=== PATIENT | male | born 1955 | race Caucasian/White ===

== ENCOUNTER 2022-03-22 18:57 | Emergency (ER) | payer BC ==
[2022-03-22] MEDS ORDERED: SODIUM CHLORIDE 0.9% 1,000 ML IV STA (21:17)
--- NOTE | 2022-03-22 21:35 | ED ---
Male Urogenital HPI - General Chief complaint: Urogenital Stated complaint: Poss UTI Time Seen by Provider: 03/22/22 21:08 Source: patient Mode of arrival: ambulatory Limitations: no limitations - History of Present Illness Initial comments: Patient is a 66-year-old male presenting from urgent care for concerns of sepsis. Patient states that for the last few days he has been having some urgency and frequency. He states he noted some traces of blood in his urine for a few days ago, but this has since stopped. He admits to left testicular pain and swelling. He denies any abdominal pain, nausea, vomiting, flank pain. He was seen in urgent care today, he was found to be tachycardic and febrile at 101. They were concerned for sepsis and sent him here for evaluation. He denies any chest pain or shortness of breath. Denies any dysuria. Denies any recent illness, URI like symptoms, cough. - Related Data Home Medications Medication Instructions Recorded Confirmed Rosuvastatin [Crestor] 10 mg PO DAILY 03/22/22 03/22/22 Tamsulosin [Flomax] 0.4 mg PO DAILY 03/22/22 03/22/22 Previous Rx's Medication Instructions Recorded Ciprofloxacin HCl [Cipro] 500 mg PO BID 7 Days #14 tab 03/22/22 Allergies Allergy/AdvReac Type Severity Reaction Status Date / Time No Known Allergies Allergy Verified 03/22/22 21:47 Review of Systems ROS Statement: Those systems with pertinent positive or pertinent negative responses have been documented in the HPI. ROS Other: All systems not noted in ROS Statement are negative. Past Medical History Past Medical History: Hyperlipidemia History of Any Multi-Drug Resistant Organisms: None Reported Past Surgical History: No Surgical Hx Reported Past Psychological History: No Psychological Hx Reported Smoking Status: Never smoker Past Alcohol Use History: None Reported Past Drug Use History: None Reported General Exam Limitations: no limitations General appearance: alert, in no apparent distress Head exam: Present: atraumatic, normocephalic, normal inspection Eye exam: Present: normal appearance, EOMI. Absent: scleral icterus Neck exam: Present: normal inspection Respiratory exam: Present: normal lung sounds bilaterally. Absent: respiratory distress, wheezes, rales, rhonchi, stridor Cardiovascular Exam: Present: regular rate, normal rhythm, normal heart sounds. Absent: systolic murmur, diastolic murmur, rubs, gallop, clicks GI/Abdominal exam: Present: soft. Absent: distended, tenderness, guarding, rebound, rigid exam: Present: testicular tenderness, scrotal swelling, other (negative Phren's sign). Absent: vertical testicular lie Expanded exam: Testicular Tenderness: Left, Testicular Swelling: Left Neurological exam: Present: alert, oriented X3, CN II-XII intact Psychiatric exam: Present: normal affect, normal mood Skin exam: Present: warm, dry, intact, normal color. Absent: rash Course Vital Signs 03/22/22 03/22/22 03/22/22 19:09 22:12 23:35 Temperature 99.8 F H 99.1 F Pulse Rate 107 H 102 H 94 Respiratory 18 16 16 Rate Blood Pressure 131/73 151/88 138/69 O2 Sat by Pulse 96 98 98 Oximetry Medical Decision Making - Medical Decision Making Patient is a 58-year-old male presenting from urgent care for evaluation of UTI with tachycardia and fever. Patient states that for the last 2-3 days he has had urinary urgency and frequency, as well as left testicular pain and swelling. On examination the left testicle is erythematous, swollen, tender. Negative Phren's sign. UA is remarkable for UTI. There is leukocytosis, lactic acid is WNL. Scrotum ultrasound shows no torsion there is a small right epididymal cyst, no testicular mass, there is a loculated left sided hydrocele. On reassessment temperature is 98.1 and pulse is 94. My attending spoke with Dr. Franco, it was decided that the patient will be discharged home on ciprofloxacin 500 mg twice a day for 7 days. Follow-up with PCP on Friday. Take Motrin and Tylenol for fever control. Report back to ER with any new or worsening symptoms. I discussed return parameters and alarm symptoms. Answered all questions. Patient and his conveyed verbal understanding and agreed to the plan. I discussed this case with my attending Dr. Neville. - Lab Data Result diagrams: 03/22/22 21:36 03/22/22 21:36 Lab Results 03/22/22 03/22/22 03/22/22 Range/Units 21:35 21:36 21:36 WBC 17.4 H (3.8-10.6) k/uL RBC 4.46 (4.30-5.90) m/uL Hgb 13.5 (13.0-17.5) gm/dL Hct 40.8 (39.0-53.0) % MCV 91.4 (80.0-100.0) fL MCH 30.2 (25.0-35.0) pg MCHC 33.1 (31.0-37.0) g/dL RDW 12.2 (11.5-15.5) % Plt Count 170 (150-450) k/uL MPV 7.4 Neutrophils % 86 % Lymphocytes % 6 % Monocytes % 6 % Eosinophils % 1 % Basophils % 0 % Neutrophils # 15.0 H (1.3-7.7) k/uL Lymphocytes # 1.0 (1.0-4.8) k/uL Monocytes # 1.1 H (0-1.0) k/uL Eosinophils # 0.1 (0-0.7) k/uL Basophils # 0.1 (0-0.2) k/uL Sodium (137-145) mmol/L Potassium (3.5-5.1) mmol/L Chloride (98-107) mmol/L Carbon Dioxide (22-30) mmol/L Anion Gap mmol/L BUN (9-20) mg/dL Creatinine (0.66-1.25) mg/dL Est GFR (CKD-EPI)AfAm (>60 ml/min/1.73 sqM) Est GFR (CKD-EPI)NonAf (>60 ml/min/1.73 sqM) Glucose (74-99) mg/dL Plasma Lactic Acid Javier 1.0 (0.7-2.0) mmol/L Calcium (8.4-10.2) mg/dL Total Bilirubin (0.2-1.3) mg/dL AST (17-59) U/L ALT (4-49) U/L Alkaline Phosphatase (38-126) U/L Total Protein (6.3-8.2) g/dL Albumin (3.5-5.0) g/dL Urine Color [place] Urine Appearance Cloudy (Clear) Urine pH 6.0 (5.0-8.0) Ur Specific [place] 1.035 (1.001-1.035) Urine Protein 2+ H (Negative) Urine Glucose (UA) Trace H (Negative) Urine Ketones 1+ H (Negative) Urine Blood Small H (Negative) Urine Nitrite Positive (Negative) Urine Bilirubin 1+ H (Negative) Urine Urobilinogen 3.0 (<2.0) mg/dL Ur Leukocyte Esterase Large H (Negative) Urine RBC 3 (0-5) /hpf Urine WBC >182 H (0-5) /hpf Ur Squamous Epith Cells 2 (0-4) /hpf Urine Bacteria Occasional H (None) /hpf Urine Mucus Many H (None) /hpf 03/22/22 Range/Units 21:36 WBC (3.8-10.6) k/uL RBC (4.30-5.90) m/uL Hgb (13.0-17.5) gm/dL Hct (39.0-53.0) % MCV (80.0-100.0) fL MCH (25.0-35.0) pg MCHC (31.0-37.0) g/dL RDW (11.5-15.5) % Plt Count (150-450) k/uL MPV Neutrophils % % Lymphocytes % % Monocytes % % Eosinophils % % Basophils % % Neutrophils # (1.3-7.7) k/uL Lymphocytes # (1.0-4.8) k/uL Monocytes # (0-1.0) k/uL Eosinophils # (0-0.7) k/uL Basophils # (0-0.2) k/uL Sodium 136 L (137-145) mmol/L Potassium 3.6 (3.5-5.1) mmol/L Chloride 101 (98-107) mmol/L Carbon Dioxide 27 (22-30) mmol/L Anion Gap 8 mmol/L BUN 15 (9-20) mg/dL Creatinine 0.91 (0.66-1.25) mg/dL Est GFR (CKD-EPI)AfAm >90 (>60 ml/min/1.73 sqM) Est GFR (CKD-EPI)NonAf 86 (>60 ml/min/1.73 sqM) Glucose 139 H (74-99) mg/dL Plasma Lactic Acid Javier (0.7-2.0) mmol/L Calcium 8.6 (8.4-10.2) mg/dL Total Bilirubin 1.2 (0.2-1.3) mg/dL AST 28 (17-59) U/L ALT 23 (4-49) U/L Alkaline Phosphatase 94 (38-126) U/L Total Protein 6.7 (6.3-8.2) g/dL Albumin 4.0 (3.5-5.0) g/dL Urine Color Urine Appearance (Clear) Urine pH (5.0-8.0) Ur Specific [place] (1.001-1.035) Urine Protein (Negative) Urine Glucose (UA) (Negative) Urine Ketones (Negative) Urine Blood (Negative) Urine Nitrite (Negative) Urine Bilirubin (Negative) Urine Urobilinogen (<2.0) mg/dL Ur Leukocyte Esterase (Negative) Urine RBC (0-5) /hpf Urine WBC (0-5) /hpf Ur Squamous Epith Cells (0-4) /hpf Urine Bacteria (None) /hpf Urine Mucus (None) /hpf Disposition Clinical Impression: UTI (urinary tract infection) Disposition: HOME SELF-CARE Condition: Fair Instructions (If sedation given, give patient instructions): Urinary Tract Infection in Men (ED) Additional Instructions: Follow-up with PCP in one day. Report back to ER with any new or worsening symptoms. Take medication as prescribed. Take Motrin and Tylenol as needed for fever control. Prescriptions: Ciprofloxacin HCl [Cipro] 500 mg PO BID 7 Days #14 tab Is patient prescribed a controlled substance at d/c from ED?: No Referrals: Randall Franco MD [Primary Care Provider] - 03/25/22 Time of Disposition: 23:36
[2022-03-22 21:51] LABS: Basophils # (A) 0.1 k/uL (0-0.2); Basophils % (A) 0 %; Eosinophils # (A) 0.1 k/uL (0-0.7); Eosinophils % (A) 1 %; HCT 40.8 % (39.0-53.0); HGB 13.5 gm/dL (13.0-17.5); Lymphocytes % (A) 6 %; MCH 30.2 pg (25.0-35.0); MCHC 33.1 g/dL (31.0-37.0); MCV 91.4 fL (80.0-100.0); Mean Platelet Volume 7.4; Monocytes # (A) 1.1 k/uL (0-1.0); Monocytes % (A) 6 %; Neutrophils % (A) 86 %; Platelet Count 170 k/uL (150-450); RBC 4.46 m/uL (4.30-5.90); RDW 12.2 % (11.5-15.5); WBC 17.4 k/uL (3.8-10.6)
[2022-03-22 22:01] LABS: Appearance,Urine Cloudy (Clear); Bacteria,Urine Occasional /hpf; Bilirubin,Urine 1+ (Negative); Blood,Urine Small (Negative); Color,Urine Orange; Glucose,Urine (UA) Trace (Negative); Ketones,Urine 1+ (Negative); Leukocyte Esterase,Urine Large (Negative); Mucus,Urine Many /hpf; Nitrite,Urine Positive (Negative); Protein,Urine 2+ (Negative); RBC,Urine 3 /hpf (0-5); Specific Gravity,Urine 1.035 (1.001-1.035); Squamous Epithelial Cell,Urine 2 /hpf (0-4); WBC,Urine >182 /hpf (0-5)
[2022-03-22 22:14] LABS: ALT 23 U/L (4-49); AST 28 U/L (17-59); African American GFR (CKD) >90 (>60 ml/min/1.73 sqM); Alkaline Phosphatase 94 U/L (38-126); Anion Gap 8 mmol/L; Blood Urea Nitrogen 15 mg/dL (9-20); Calcium 8.6 mg/dL (8.4-10.2); Carbon Dioxide 27 mmol/L (22-30); Chloride 101 mmol/L (98-107); Glucose 139 mg/dL (74-99); Non-African American GFR(CKD) 86 (>60 ml/min/1.73 sqM); Potassium 3.6 mmol/L (3.5-5.1); Sodium 136 mmol/L (137-145); Total Bilirubin 1.2 mg/dL (0.2-1.3); Total Protein 6.7 g/dL (6.3-8.2)
[2022-03-22] MEDS ORDERED: IBUPROFEN 600 MG TAB PO STA (22:16)
[2022-03-22 22:35] VITALS: RESP 16
--- NOTE | 2022-03-22 22:43 | US ---
EXAMINATION TYPE: US scrotum with doppler. Grayscale and color Doppler Duplex imaging performed of t he scrotum. DATE OF EXAM: 03/22/2022 COMPARISON: NONE CLINICAL HISTORY: L testicle pain and swelling. Left testicle pain and swelling/ current UTI EXAM MEASUREMENTS: TESTICLES: Right Testicle: 4.8 x 2.9 x 3.1 cm Small right epi head cyst= 0.7 x 0.7 cm Left Testicle: 4.8 x 3.5 x 3.8 cm EPIDIDYMIS HEAD: Right Epididymis: 1.4 cm Left Epididymis: 1.4 cm Doppler performed to assess for testicular vascularity; good bilateral color flow and waveforms are s een. There is no evidence of testicular torsion. Presence of hydroceles: Small amount of fluid surrounding right testicle, and larger, loculated tomasa ection superior to left testicle Presence of varicoceles: No Small right epi head cyst, rete testes right lateral testicle Loculated fluid superior to left testicle, left testicle and epididymis enlarge, heterogeneous, and hypervascular IMPRESSION: No evidence of testicular torsion. Small right epididymal cyst. No testicular mass. There is a locula eduard left-sided hydrocele.
[2022-03-22] MEDS ORDERED: LEVOFLOXACIN 500MG-D5W PMX 500 MG in DEXTROSE/WATER 1 100ML.BAG IVPB STA (23:13)
[2022-03-22] MEDS ORDERED: KETOROLAC 15 MG/ML 1 ML VIAL IVP STA (23:16)
[2022-03-22] MEDS ORDERED: ACETAMINOPHEN TAB 500 MG TAB PO STA (23:16)
[2022-03-22] MEDS ORDERED: SODIUM CHLORIDE 0.9% 500 ML 500 ML IV ONE (23:18)
[2022-03-22 23:35] VITALS: BP 138/69; PULSE 94; TEMP 99.1
[2022-03-22] MEDS ORDERED: CIPROFLOXACIN HCL 500 MG TAB PO STA (23:36)
== END 2022-03-23 00:18 | disposition home or self-care (01) ==
LOC: EC 18:57
DX: N39.0 Urinary tract infection, site not specified (principal); N43.3 Hydrocele, unspecified; N50.3 Cyst of epididymis; D72.829 Elevated white blood cell count, unspecified; E78.5 Hyperlipidemia, unspecified; Z79.899 Other long term (current) drug therapy
CPT/HCPCS: 36415; 80053; 83605; 85025; 81001; 87086; 93975; 76870; 99284; 96374; 96361 ×3; J1885; 87077; 87186

== ENCOUNTER → 2023-12-25 | Outpatient (CLI) | payer BC | END | disposition home or self-care (01) | LOC: LABWHC1 11:28 | PROVIDERS: ATTEND Internal Medicine | DX: Z01.818 Encounter for other preprocedural examination (principal) | CPT/HCPCS: 36415; 85730 ==

== ENCOUNTER → 2024-02-11 | Outpatient (CLI) | payer BC ==
[2024-02-11 12:23] LABS: African American GFR (CKD) >90 (>60 ml/min/1.73 sqM); Blood Urea Nitrogen 22 mg/dL (9-20); Non-African American GFR(CKD) 90 (>60 ml/min/1.73 sqM)
--- NOTE | 2024-02-13 16:37 | CT ---
EXAMINATION TYPE: CT chest w con DATE OF EXAM: 02/11/2024 COMPARISON: None HISTORY: Solitary pulmonary nodule. CT DLP: 418.4 mGycm, Automated exposure control for dose reduction was used. CONTRAST: Performed injected with 100 mL of Isovue 300. TECHNIQUE: Axial images were obtained at 5 mm thick sections. Reconstructed images are reviewed on [employer] computer in the coronal plane. FINDINGS: Portion of the thyroid visualized is normal. No suspicious lung nodules or focal infiltrates are present. There is a very tiny punctate peripheral right lateral lung density, series 4 image 48. No enlarged mediastinal or hilar adenopathy is evident. The ascending aorta diameter at the level o f the main pulmonary artery is 3.1 cm. The main pulmonary artery diameter at the bifurcation is 2.[address] sections are obtained through the upper abdomen. Cholelithiasis is present. IMPRESSION: 1. No suspicious lung nodules radiographically apparent. If outside comparison films can be located, directed evaluation can be performed.
== END | disposition home or self-care (01) ==
LOC: RADCTMAIN 11:43
PROVIDERS: ATTEND Internal Medicine Critical Care Medicine
DX: R91.1 Solitary pulmonary nodule (principal)
CPT/HCPCS: 82565; 84520; 71260; 36415; Q9967

== ENCOUNTER → 2024-05-07 | Outpatient (CLI) | payer BC ==
--- NOTE | 2024-05-07 14:05 | US ---
EXAMINATION TYPE: US carotid duplex BILAT DATE OF EXAM: 05/07/2024 COMPARISON: NONE CLINICAL INDICATION: Male, 68 years old with history of I65.23 STENOSIS; Abnormal stress test; Hx HTN TECHNIQUE: Carotid duplex ultrasound examination. Indirect Doppler criteria was utilized. FINDINGS: EXAM MEASUREMENTS: RIGHT: Peak Systolic Velocity (PSV) cm/sec ----- Right CCA: 98 ----- Right ICA: 106 ----- Right ECA: 125 ICA/CCA ratio: 1.1 RIGHT: End Diastole cm/sec ----- Right CCA: 19 ----- Right ICA: 16 ----- Right ECA: 9 LEFT: Peak Systolic Velocity (PSV) cm/sec ----- Left CCA: 85 ----- Left ICA: 78 ----- Left ECA: 96 ICA/CCA ratio: 0.9 LEFT: End Diastole cm/sec ----- Left CCA: 18 ----- Left ICA: 17 ----- Left ECA: 6 VERTEBRALS (direction of flow): Right Vertebral: Antegrade Left Vertebral: Antegrade Rhythm: Normal INDUSTRIAL ECONOMIST NOTES: No plaque, intimal thickening, or elevated velocities seen. IMPRESSION: No ultrasound evidence for hemodynamically significant stenosis of the bilateral visualized carotid a rterial systems. Criteria for Assigning % of Stenosis / Diameter reduction (Estimation based on the indirect measurements of the internal carotid artery velocities (ICA PSV). 1. Normal (no stenosis)=ICA PSV < 125 cm/s: ratio < 2.0: ICA EDV<40 cm/s. 2. Less than 50% stenosis=ICA PSV < 125 cm/s: ratio < 2.0: ICA EDV<40 cm/s. 3. 50 to 69% stenosis=ICA PSV of 125 to 230 cm/s: ration 2.0 ? 4.0: ICA EDV 40-100 cm/s. 4. Greater than 70% stenosis to near occlusion= ICA PSV > 230 cm/s: ratio > 4.0: ICA EDV > 100 cm/s. 5. Near occlusion= ICA PSV velocities may be low or undetectable: variable ratio and ICA EDV. 6. Total occlusion=unable to detect flow.
[2024-05-07 15:23] LABS: African American GFR (CKD) >90 (>60 ml/min/1.73 sqM); Blood Urea Nitrogen 22 mg/dL (9-20); Non-African American GFR(CKD) >90 (>60 ml/min/1.73 sqM)
== END | disposition home or self-care (01) ==
LOC: RADUSWWP 13:38
PROVIDERS: ATTEND Internal Medicine
DX: I65.23 Occlusion and stenosis of bilateral carotid arteries (principal); R31.29 Other microscopic hematuria; I10 Essential (primary) hypertension
CPT/HCPCS: 82565; 84520; 93880; 74178; 36415; 74400; Q9967

== ENCOUNTER 2024-09-22 08:38 | Emergency (ER) | payer MEDICARE ==
--- NOTE | 2024-09-22 09:34 | ED ---
General Adult HPI - General Chief complaint: Altered Mental Status Stated complaint: bilateral leg pain/confusion Time Seen by Provider: 09/22/24 08:58 Source: patient, family, RN notes reviewed, old records reviewed Mode of arrival: wheelchair Limitations: no limitations - History of Present Illness Initial comments: 68-year-old male presenting for evaluation of generalized weakness and fatigue over the past 2 to 3 days. Patient has been somewhat lightheaded. He is had some nausea without significant vomiting. No chest or abdominal pain. No hea dache. No focal numbness or weakness. He does have bilateral lower extremity weakness. No fever. - Related Data Home Medications Medication Instructions Recorded Confirmed Tamsulosin [Flomax] 0.4 mg PO DAILY 03/22/22 09/22/24 Metoprolol Succinate [Metoprolol 25 mg PO DAILY 09/22/24 09/22/24 Succinate ER] Rosuvastatin [Crestor] 20 mg PO DAILY 09/22/24 09/22/24 Vitamin E (Dl,Tocopheryl Acet) 400 unit PO DAILY 09/22/24 09/22/24 [Vitamin E (400 Iu = 180 mg)] Previous Rx's Medication Instructions Recorded Sulfamethox-Tmp 800-160Mg [Bactrim 1 tab PO Q12HR #20 tab 09/22/24 DS 800-160 mg] Allergies Allergy/AdvReac Type Severity Reaction Status Date / Time No Known Allergies Allergy Verified 09/22/24 08:41 Review of Systems ROS Statement: Those systems with pertinent positive or pertinent negative responses have been documented in the HPI. ROS Other: All systems not noted in ROS Statement are negative. Past Medical History Past Medical History: Hyperlipidemia, Hypertension, Prostate Disorder History of Any Multi-Drug Resistant Organisms: None Reported Past Surgical History: Joint Replacement Additional Past Surgical History / Comment(s): L knee Past Psychological History: No Psychological Hx Reported Smoking Status: Never smoker Past Alcohol Use History: Occasional Past Drug Use History: None Reported General Exam Limitations: no limitations General appearance: alert, in no apparent distress Head exam: Present: atraumatic, normocephalic Eye exam: Present: normal appearance, PERRL ENT exam: Present: mucous membranes dry Neck exam: Present: normal inspection. Absent: tenderness Respiratory exam: Present: normal lung sounds bilaterally. Absent: respiratory distress, wheezes Cardiovascular Exam: Present: regular rate, normal rhythm GI/Abdominal exam: Present: soft. Absent: distended, tenderness, guarding Extremities exam: Present: normal inspection, normal capillary refill. Absent: pedal edema Neurological exam: Present: alert, oriented X3, CN II-XII intact. Absent: motor sensory deficit Psychiatric exam: Present: normal affect, normal mood Skin exam: Present: warm, dry, intact. Absent: cyanosis, diaphoretic Course Vital Signs 09/22/24 09/22/24 09/22/24 08:42 09:04 09:05 Temperature 98.4 F 98.4 F Pulse Rate 91 81 Pulse Rate [ 84 Left Radial] Respiratory 18 20 18 Rate Blood Pressure 149/83 Blood Pressure 138/78 [Left Arm Sitting] Blood Pressure 132/72 [Left Arm Standing] Blood Pressure 134/79 [Left Arm Supine] O2 Sat by Pulse 97 99 Oximetry 09/22/24 09/22/24 09/22/24 09:30 10:00 10:30 Temperature Pulse Rate 91 Pulse Rate [ Left Radial] Respiratory 15 12 Rate Blood Pressure 132/72 130/75 Blood Pressure [Left Arm Sitting] Blood Pressure [Left Arm Standing] Blood Pressure [Left Arm Supine] O2 Sat by Pulse Oximetry 09/22/24 11:30 Temperature 98.3 F Pulse Rate 79 Pulse Rate [ Left Radial] Respiratory 16 Rate Blood Pressure 144/82 Blood Pressure [Left Arm Sitting] Blood Pressure [Left Arm Standing] Blood Pressure [Left Arm Supine] O2 Sat by Pulse 97 Oximetry Medical Decision Making - Medical Decision Making Was pt. sent in by a medical professional or institution (, PA, BRIM SETTER, urgent care, hospital, or detention...) When possible be specific @ -No Did you speak to anyone other than the patient for history (EMS, parent, family, police, friend...)? What history was obtained from this source @ -No Did you review nursing and triage notes (agree or disagree)? Why? @ -I reviewed and agree with nursing and triage notes Were old charts reviewed (outside hosp., previous admission, EMS record, old EKG, old radiological studies, urgent care reports/EKG's, detention records)? Report findings @ -No old charts were reviewed Differential Weakness: Hypoglycemia, shock, sepsis, hyponatremia, anemia, infection, [place], ETOH, adverse medicine reaction, overdose, stroke, this is not meant to be an all-inclusive list. EKG interpreted by me (3pts min.). @ -Sinus rhythm low voltage, rate of 81, AK interval 193, QRS duration 107, QTc [address] segment elevation. X-rays interpreted by me (1pt min.). @ -None done CT interpreted by me (1pt min.). @CT abdomen pelvis is showing 3 bladder calculi. Likely source of infection. U/S interpreted by me (1pt. min.). @ -None done What testing was considered but not performed or refused? (CT, X-rays, U/S, labs)? Why? @ -None What meds were considered but not given or refused? Why? @ -None Did you discuss the management of the patient with other professionals (professionals i.e. , PA, BRIM SETTER, lab, RT, psych nurse, dialysis social worker, rod puller, teacher, fisheries enforcement officer, outsole caser)? Give summary @ -[Case discussed with Dr. García who is familiar with the patient. Will arrange for close outpatient follow-up for likely intervention. Was smoking cessation discussed for >3mins.? @ -No Was critical care preformed (if so, how long)? @ -No Were there social determinants of health that impacted care today? How? (Homelessness, low income, unemployed, alcoholism, drug addiction, transportation, low edu. Level, literacy, decrease access to med. care, nursing home, rehab)? @ -No Was there de-escalation of care discussed even if they declined (Discuss DNR or withdrawal of care, Hospice)? DNR status @ -No What co-morbidities impacted this encounter? (DM, HTN, Smoking, COPD, CAD, Cancer, CVA, ARF, Chemo, Hep., AIDS, mental health diagnosis, sleep apnea, morbid obesity)? @ -None Was patient admitted / discharged? Hospital course, mention meds given and route, prescriptions, significant lab abnormalities, going to OR and other pertinent info. @ -68-year-old male with lightheadedness, mild confusion. Patient well- appearing with stable vitals. He has a mild leukocytosis otherwise normal CBC and CMP. He has a urinalysis which is concerning for infection. He is had previous urinary tract infections over the past 1 to 2 years and these have been positive for E. coli which was sensitive to ceftriaxone. Repeat urine culture was obtained and the patient is given a dose of ceftriaxone. Given the recurrent UTI I did perform CT imaging which showed multiple bladder calculi. This was discussed with urology who will arrange for close outpatient follow-up. Patient given strict return parameters. Undiagnosed new problem with uncertain prognosis? @ -No Drug Therapy requiring intensive monitoring for toxicity (Heparin, Nitro, Insulin, Cardizem)? @ -No Were any procedures done? @ -No Diagnosis/symptom? @UTI, bladder calculi Acute, or Chronic, or Acute on Chronic? @ -Acute Uncomplicated (without systemic symptoms) or Complicated (systemic symptoms)? @ -Default Side effects of treatment? @ -No Exacerbation, Progression, or Severe Exacerbation? @ -No Poses a threat to life or bodily function? How? (Chest pain, [place], [place], pneumonia, PE, COPD, DKA, ARF, appy, cholecystitis, CVA, Diverticulitis, Homicidal, Suicidal, threat to staff... and all critical care pts) @ -[Low risk at this time - Lab Data Result diagrams: 09/22/24 09:46 09/22/24 09:46 Lab Results 09/22/24 09/22/24 09/22/24 Range/Units 09:46 09:46 09:46 WBC 10.7 H (3.8-10.6) k/uL RBC 4.49 (4.30-5.90) m/uL Hgb 13.6 (13.0-17.5) gm/dL Hct 40.4 (39.0-53.0) % MCV 89.9 (80.0-100.0) fL MCH 30.2 (25.0-35.0) pg MCHC 33.6 (31.0-37.0) g/dL RDW 12.8 (11.5-15.5) % Plt Count 171 (150-450) k/uL MPV 7.2 Neutrophils % 84 % Lymphocytes % 6 % Monocytes % 8 % Eosinophils % 0 % Basophils % 0 % Neutrophils # 9.0 H (1.3-7.7) k/uL Lymphocytes # 0.6 L (1.0-4.8) k/uL Monocytes # 0.9 (0-1.0) k/uL Eosinophils # 0.0 (0-0.7) k/uL Basophils # 0.0 (0-0.2) k/uL Sodium 134 L (137-145) mmol/L Potassium 4.0 (3.5-5.1) mmol/L Chloride 99 (98-107) mmol/L Carbon Dioxide 27 (22-30) mmol/L Anion Gap 8 mmol/L BUN 16 (9-20) mg/dL Creatinine 1.10 (0.66-1.25) mg/dL Est GFR (CKD-EPI)AfAm 78 (>60 ml/min/1.73 sqM) Est GFR (CKD-EPI)NonAf 68 (>60 ml/min/1.73 sqM) Glucose 129 H (74-99) mg/dL Plasma Lactic Acid Javier 1.2 (0.7-2.0) mmol/L Calcium 9.1 (8.4-10.2) mg/dL Magnesium 2.0 (1.6-2.3) mg/dL Total Bilirubin 1.1 (0.2-1.3) mg/dL AST 26 (17-59) U/L ALT 19 (4-49) U/L Alkaline Phosphatase 90 (38-126) U/L Troponin I (0.000-0.034) ng/mL Total Protein 6.7 (6.3-8.2) g/dL Albumin 4.1 (3.5-5.0) g/dL Urine Color Urine Appearance (Clear) Urine pH (5.0-8.0) Ur Specific [place] (1.001-1.035) Urine Protein (Negative) Urine Glucose (UA) (Negative) Urine Ketones (Negative) Urine Blood (Negative) Urine Nitrite (Negative) Urine Bilirubin (Negative) Urine Urobilinogen (<2.0) mg/dL Ur Leukocyte Esterase (Negative) Urine RBC (0-5) /hpf Urine WBC (0-5) /hpf Urine WBC Clumps (None) /hpf Ur Squamous Epith Cells (0-4) /hpf Urine Bacteria (None) /hpf Urine Mucus (None) /hpf Influenza Type A (PCR) (Not Detectd) Influenza Type B (PCR) (Not Detectd) RSV (PCR) (Not Detectd) SARS-CoV-2 (PCR) (Not Detectd) 09/22/24 09/22/24 09/22/24 Range/Units 09:46 09:47 09:50 WBC (3.8-10.6) k/uL RBC (4.30-5.90) m/uL Hgb (13.0-17.5) gm/dL Hct (39.0-53.0) % MCV (80.0-100.0) fL MCH (25.0-35.0) pg MCHC (31.0-37.0) g/dL RDW (11.5-15.5) % Plt Count (150-450) k/uL MPV Neutrophils % % Lymphocytes % % Monocytes % % Eosinophils % % Basophils % % Neutrophils # (1.3-7.7) k/uL Lymphocytes # (1.0-4.8) k/uL Monocytes # (0-1.0) k/uL Eosinophils # (0-0.7) k/uL Basophils # (0-0.2) k/uL Sodium (137-145) mmol/L Potassium (3.5-5.1) mmol/L Chloride (98-107) mmol/L Carbon Dioxide (22-30) mmol/L Anion Gap mmol/L BUN (9-20) mg/dL Creatinine (0.66-1.25) mg/dL Est GFR (CKD-EPI)AfAm (>60 ml/min/1.73 sqM) Est GFR (CKD-EPI)NonAf (>60 ml/min/1.73 sqM) Glucose (74-99) mg/dL Plasma Lactic Acid Javier (0.7-2.0) mmol/L Calcium (8.4-10.2) mg/dL Magnesium (1.6-2.3) mg/dL Total Bilirubin (0.2-1.3) mg/dL AST (17-59) U/L ALT (4-49) U/L Alkaline Phosphatase (38-126) U/L Troponin I 0.012 (0.000-0.034) ng/mL Total Protein (6.3-8.2) g/dL Albumin (3.5-5.0) g/dL Urine Color Yellow Urine Appearance Cloudy (Clear) Urine pH 5.5 (5.0-8.0) Ur Specific [place] 1.016 (1.001-1.035) Urine Protein 1+ H (Negative) Urine Glucose (UA) Negative (Negative) Urine Ketones Negative (Negative) Urine Blood Moderate H (Negative) Urine Nitrite Positive (Negative) Urine Bilirubin Negative (Negative) Urine Urobilinogen <2.0 (<2.0) mg/dL Ur Leukocyte Esterase Large H (Negative) Urine RBC 18 H (0-5) /hpf Urine WBC >182 H (0-5) /hpf Urine WBC Clumps Few H (None) /hpf Ur Squamous Epith Cells <1 (0-4) /hpf Urine Bacteria Few H (None) /hpf Urine Mucus Occasional H (None) /hpf Influenza Type A (PCR) Not Detected (Not Detectd) Influenza Type B (PCR) Not Detected (Not Detectd) RSV (PCR) Not Detected (Not Detectd) SARS-CoV-2 (PCR) Not Detected (Not Detectd) Disposition Clinical Impression: UTI (urinary tract infection), Bladder calculi Disposition: HOME SELF-CARE Condition: Fair Instructions (If sedation given, give patient instructions): Urinary Tract Infection in Men (ED) Prescriptions: Sulfamethox-Tmp 800-160Mg [Bactrim DS 800-160 mg] 1 tab PO Q12HR #20 tab Is patient prescribed a controlled substance at d/c from ED?: No Referrals: Randall Franco MD [Primary Care Provider] - 1-2 days Adan García MD [STAFF PHYSICIAN] - 1-2 days Time of Disposition: 11:44
[2024-09-22] MEDS: SODIUM CHLORIDE 0.9% 1,000 ML IV STA (09:47)
[2024-09-22 10:03] LABS: Basophils % (A) 0 %; Eosinophils % (A) 0 %; HCT 40.4 % (39.0-53.0); HGB 13.6 gm/dL (13.0-17.5); Lymphocytes # (A) 0.6 k/uL (1.0-4.8); Lymphocytes % (A) 6 %; MCH 30.2 pg (25.0-35.0); MCHC 33.6 g/dL (31.0-37.0); MCV 89.9 fL (80.0-100.0); Mean Platelet Volume 7.2; Monocytes # (A) 0.9 k/uL (0-1.0); Monocytes % (A) 8 %; Neutrophils % (A) 84 %; Platelet Count 171 k/uL (150-450); RBC 4.49 m/uL (4.30-5.90); RDW 12.8 % (11.5-15.5); WBC 10.7 k/uL (3.8-10.6)
[2024-09-22 10:18] LABS: ALT 19 U/L (4-49); AST 26 U/L (17-59); African American GFR (CKD) 78 (>60 ml/min/1.73 sqM); Albumin 4.1 g/dL (3.5-5.0); Alkaline Phosphatase 90 U/L (38-126); Anion Gap 8 mmol/L; Blood Urea Nitrogen 16 mg/dL (9-20); Calcium 9.1 mg/dL (8.4-10.2); Carbon Dioxide 27 mmol/L (22-30); Chloride 99 mmol/L (98-107); Glucose 129 mg/dL (74-99); Non-African American GFR(CKD) 68 (>60 ml/min/1.73 sqM); Sodium 134 mmol/L (137-145); Total Bilirubin 1.1 mg/dL (0.2-1.3); Total Protein 6.7 g/dL (6.3-8.2)
[2024-09-22 10:36] LABS: Appearance,Urine Cloudy (Clear); Bacteria,Urine Few /hpf; Bilirubin,Urine Negative (Negative); Blood,Urine Moderate (Negative); Color,Urine Yellow; Glucose,Urine (UA) Negative (Negative); Ketones,Urine Negative (Negative); Leukocyte Esterase,Urine Large (Negative); Mucus,Urine Occasional /hpf; Nitrite,Urine Positive (Negative); PH, Urine 5.5 (5.0-8.0); Protein,Urine 1+ (Negative); RBC,Urine 18 /hpf (0-5); Specific Gravity,Urine 1.016 (1.001-1.035); Squamous Epithelial Cell,Urine <1 /hpf (0-4); Urobilinogen,Urine <2.0 mg/dL (<2.0); WBC,Urine >182 /hpf (0-5)
--- NOTE | 2024-09-22 11:19 | CT ---
EXAMINATION TYPE: CT abdomen pelvis wo con CT DLP: 782.8 mGycm, Automated exposure control for dose reduction was used. DATE OF EXAM: 09/22/2024 11:07 AM COMPARISON: CT urogram 05/07/2024 CLINICAL INDICATION:Male, 68 years old with history of Recurrent UTI; UTI TECHNIQUE: Standard CT of the abdomen and pelvis without IV or oral contrast. Lack of IV or oral co ntrast limits evaluation of solid and hollow organ viscera. Coronal and sagittal reformats were perfo rmed. FINDINGS: LOWER CHEST: Unremarkable ABDOMEN LIVER: Multiple calcifications along the anterior right hepatic dome abutting the pleura. GALLBLADDER AND BILE DUCTS: Cholelithiasis without surrounding inflammatory changes. No biliary ducta l dilatation. PANCREAS: Unremarkable noncontrast appearance SPLEEN: Unremarkable noncontrast appearance ADRENAL GLANDS: Unremarkable noncontrast appearance. KIDNEYS AND URETERS: No hydronephrosis. Couple of punctate nonobstructive right renal calculi. Additi onal couple of punctate nonobstructive left renal calculi. No definitive ureteral calculi. PELVIS BLADDER: Urinary bladder is underdistended with circumferential wall thickening and surrounding fat s tranding. Approximately 3 layering calculi identified within the urinary bladder with largest measuri ng up to 1.3 cm. REPRODUCTIVE: Prostate is enlarged in size measuring 7.3 cm in transverse dimension. ABDOMEN & PELVIS STOMACH AND BOWEL: Small third portion duodenum diverticulum.Sigmoid diverticulosis without evidence for acute diverticulitis. The appendix is within normal limits. No focal bowel wall thickening or catia rounding inflammatory changes. No evidence of bowel obstruction. PERITONEUM: No evidence of pneumoperitoneum or free fluid. VASCULATURE: No evidence of aortic aneurysm. MUSCULOSKELETAL: No acute osseous abnormalities LYMPH NODES: No gross evidence for lymphadenopathy. SOFT TISSUE/ABDOMINAL WALL: Small fat filled bilateral inguinal hernias. IMPRESSION: 1. Circumferential wall thickening of the urinary bladder with surrounding fat stranding and 3 layer ing calculi. Findings are concerning for cystitis. Correlate with urinalysis. 2. Nonobstructive bilateral renal punctate calculi. 3. Cholelithiasis. 4. Sigmoid diverticulosis without evidence for acute diverticulitis. Excellent 5. Prostatomegaly. [facility], , 09/22/2024 11:16 AM
[2024-09-22 11:51] VITALS: PULSE 79
[2024-09-22 12:54] VITALS: BP 157/87; RESP 12; TEMP 98.9
== END 2024-09-22 13:09 | disposition home or self-care (01) ==
LOC: EC 08:38
DX: N39.0 Urinary tract infection, site not specified (principal); N21.0 Calculus in bladder; D72.829 Elevated white blood cell count, unspecified; B96.20 Unspecified Escherichia coli [E. coli] as the cause of diseases classified elsewhere
CPT/HCPCS: 36415; 93005; 80053; 83605; 83735; 84484; 85025; 81001; 87086; 87077; 87186; 87636; 74176; 99285; 96365; 96361; J0696

== ENCOUNTER 2024-11-09 05:44 | Day surgery (SDC) | payer MEDICARE ==
[2024-11-05 09:33] VITALS: BMI 32.1
--- NOTE | 2024-11-05 13:00 | P.HPIHPCON ---
History of Present Illness H&P Date: 11/05/24 Chief Complaint: Bladder stone This is a 68-year-old male with history of recurrent UTIs difficulty voiding. Underwent a CT urogram that showed evidence of 3 large bladder stone, total stone burden is greater than 2.5 cm. Discussed with him given his symptoms and recurrent UTIs I do recommend addressing the stones. Option of cystolitholapaxy was discussed with him. Aware of the risk which includes but not limited to bleeding, infection, injury to the bladder. Discussed also his enlarged prostate could be contributing to his symptoms. He understood all the risk and agreed to proceed Consent for Procedure: I have explained the operation/procedure to the patient, including the risks, benefits, side effects, alternative therapies (including not receiving the proposed treatment or service), the likelihood of the patient achieving his/her goals, and potential recuperation problems for the procedure/sedation/analgesia, as well as any blood products, if indicated. I also explained to the patient the risks, benefits and side effects of the alternatives, as well as the risks related to not receiving the proposed procedure, care, treatment, or services. Past Medical History Past Medical History: Hyperlipidemia, Hypertension, Prostate Disorder History of Any Multi-Drug Resistant Organisms: None Reported Past Surgical History: Joint Replacement Additional Past Surgical History / Comment(s): L knee; Cyst removal from back- benign Past Anesthesia/Blood Transfusion Reactions: No Reported Reaction Smoking Status: Never smoker Medications and Allergies Home Medications Medication Instructions Recorded Confirmed Type Tamsulosin [Flomax] 0.4 mg PO DAILY 03/22/22 11/05/24 History Rosuvastatin [Crestor] 20 mg PO DAILY 09/22/24 11/05/24 History Vitamin E (Dl,Tocopheryl Acet) 400 unit PO DAILY 09/22/24 11/05/24 History [Vitamin E (400 Iu = 180 mg)] Allergies Allergy/AdvReac Type Severity Reaction Status Date / Time No Known Allergies Allergy Verified 11/05/24 09:25 Surgical - Exam - General no distress, no pain - Eyes normal ocular movement, no pale - ENT normal nares, normal mucosa - Respiratory normal expansion, normal respiratory effort - Abdomen Abdomen: soft, non tender, no distended Assessment and Plan Assessment: OR for cystolitholapaxy
[2024-11-09] MEDS: IV FLUID CONTINUATION 1,000 ML IV ONE (06:39)
--- NOTE | 2024-11-09 06:59 | XR ---
EXAMINATION TYPE: XR KUB DATE OF EXAM: 11/09/2024 COMPARISON: CT abdomen and pelvis 09/22/2024, CT urogram 05/07/2024 HISTORY: Calculus TECHNIQUE: Single upright KUB image of the abdomen is obtained FINDINGS: Small bowel demonstrates no evidence for dilatation or air fluid levels. Gas and fecal material is seen in non-distended colon. No convincing evidence for pneumoperitoneum. Right renal 0.9 mm calculus. There are 2 calculi identified within the urinary bladder measuring 1.2 and 0.7 cm. The lung bases are clear. The osseous structures are intact. Dextrocurvature of the thoracolumbar spine. IMPRESSION: 1. Overall nonobstructive bowel gas pattern. 2. Right renal calculus with additional 2 urinary bladder calculi. [facility], , 11/09/2024 6:56 AM
[2024-11-09] MEDS ORDERED: HYDROmorphone 0.5 MG/0.5 ML SYRINGE IVP PRN (07:00)
[2024-11-09] MEDS: ONDANSETRON 4 MG/2 ML VIAL IVP STA (07:05)
[2024-11-09] MEDS: DEXAMETHASONE SOD PHOSPHATE 4 MG/ML 1 ML VIAL IVP STA (07:06)
[2024-11-09] MEDS: LACTATED RINGERS 1,000 ML IV SCH (07:06)
[2024-11-09] MEDS ORDERED: PROPOFOL 10 MG/ML 20 ML VIAL IV ONE (07:32)
[2024-11-09] MEDS ORDERED: LIDOCAINE 1% INJ 10MG/ML (20 ML MDV) ONE (07:32)
[2024-11-09] MEDS ORDERED: fentaNYL (PF) 50 MCG/ML 2 ML AMP ONE (07:32)
[2024-11-09 08:26] VITALS: TEMP 97
--- NOTE | 2024-11-09 08:33 | P.OP ---
Date of Procedure: 11/09/24 Preoperative Diagnosis: Bladder stone Postoperative Diagnosis: Same Procedure(s) Performed: Cystolitholapaxy(>2.5cm) Implants: none Anesthesia: LANNYA Surgeon: Adan García Estimated Blood Loss (ml): 5 Pathology: other (Bladder stone) Condition: stable Disposition: PACU Indications for Procedure: This is a 68-year-old male with history of recurrent UTIs difficulty voiding. Underwent a CT urogram that showed evidence of 3 large bladder stone, total s tone burden is greater than 2.5 cm. Discussed with him given his symptoms and recurrent UTIs I do recommend addressing the stones. Option of cystolitholapaxy was discussed with him. Aware of the risk which includes but not limited to bleeding, infection, injury to the bladder. Discussed also his enlarged prostate could be contributing to his symptoms. He understood all the risk and agreed to proceed Operative Findings: 3 bladder stones within the bladder Description of Procedure: Patient brought the operating room, general anesthesia was induced. He was prepped and draped in sterile fashion placed in a dorsolithotomy position. Cystoscopy through the 21 Chinese sheath was inserted per urethra. Cystoscopy was performed which showed a significant enlargement of the prostate with significant intravesical extension, patient had a small median lobe but mainly had any enlargement of the lateral lobes. Within the bladder there were 3 stones visualized. Using the holmium laser the stones were fragmented, stone fragments were removed using the cystoscope. Repeat cystoscopy showed no sizable fragments or injury to the bladder, there was no additional abnormality within the bladder. There was some prostatic backbleeding. This time the cystoscope was withdrawn and a 20 Chinese coud catheter was placed, catheter was irrigated to clear without any difficulties. Patient tolerated procedure well was taken to recovery in stable condition
[2024-11-09 09:28] VITALS: RESP 18
[2024-11-09 09:44] VITALS: BP 134/81; PULSE 66
== END 2024-11-09 10:08 | disposition home or self-care (01) ==
LOC: OR 05:44
PROVIDERS: ATTEND Urology
DX: N21.0 Calculus in bladder (principal); Z87.440 Personal history of urinary (tract) infections; E78.5 Hyperlipidemia, unspecified; I10 Essential (primary) hypertension; N40.0 Benign prostatic hyperplasia without lower urinary tract symptoms; Z79.899 Other long term (current) drug therapy; Z87.442 Personal history of urinary calculi; Z98.890 Other specified postprocedural states; Z96.652 Presence of left artificial knee joint
CPT/HCPCS: 82365; 74018; 52318; C1894; C1758; C1769; J1100; J0690; J2405; J2003; J3010; J2704

== ENCOUNTER → 2024-12-14 | Outpatient (CLI) | payer MEDICARE ==
--- NOTE | 2024-12-14 16:00 | NM ---
EXAMINATION TYPE: NM DatScan Brain SPECT DATE OF EXAM: 12/14/2024 COMPARISON: NONE CLINICAL INDICATION: Male, 68 years old with history of R25.1 TREMOR, UNSPECIFIED; TECHNIQUE: 10 drops of Lugol's solution was administered 1 hour prior to injection as a thyroid bloc flavio agent. After the administration of 4.7 mCi I-123 Ioflupane DaTscan. Images obtained [address] injection. SPECT images of the brain were acquired with axial and coronal reconstructions. FINDINGS: The uptake of radiotracer within the patient's caudate nuclei and putamina is symmetric and crescent- shaped. IMPRESSION: There is no scintigraphic evidence of a neurodegenerative disorder (Parkinson's disease, Multisystem atrophy or Progressive supranuclear palsy), as there is symmetric uptake of I-123 Ioflupan (DaTscan) within the caudate nuclei and putamina. [facility], , 12/14/2024 3:58 PM
== END | disposition home or self-care (01) ==
LOC: RADNMMAIN 10:20
PROVIDERS: ATTEND Internal Medicine
DX: R25.1 Tremor, unspecified (principal)
CPT/HCPCS: 78803; A9584